=== PATIENT | female | born 1950 | race Caucasian/White ===

== ENCOUNTER 2017-10-13 22:54 | Emergency (ER) | payer OTHER, MEDICARE ==
[2017-10-13] MEDS: ONDANSETRON 4 MG INJ IV (23:59)
[2017-10-13] MEDS: SOD CHLORIDE 0.9% 1,000 ML IV (23:59)
[2017-10-14] MEDS: HYDROmorphONE 1 MG/ML SYG IV
[2017-10-14] MEDS: PROCHLORPERAZINE 10 MG INJ IV (00:10)
== END 2017-10-14 01:58 | disposition home or self-care (01) ==
LOC: E/R 22:54
DX: G43.909 Migraine, unspecified, not intractable, without status migrainosus (principal); R40.2252 Coma scale, best verbal response, oriented, at arrival to emergency department; R40.2142 Coma scale, eyes open, spontaneous, at arrival to emergency department; R40.2362 Coma scale, best motor response, obeys commands, at arrival to emergency department
CPT/HCPCS: 36415; 70450; 96374; 96375; 99285-25